=== PATIENT | female | born 1955 | race Caucasian/White ===

== ENCOUNTER → 2016-06-03 | Outpatient (CLI) | payer MEDICARE ==
[~2016-06-03] MED LIST: CITALOPRAM HBR10 MG PO; DITROPAN 5 MG TA5 MG PO; FLEXERIL 10 MG10 MG PO; HYDROCHLOROTHIA25 MG PO; HYDROXYZINE HCL25 MG PO; KLONOPIN TAB 00.5 MG PO; LEVAQUIN750 MG PO; LIPITOR TAB 1010 MG PO; LISINOPRIL40 MG PO; NEURONTIN 300300 MG PO; PROTONIX40 MG PO; ZANTAC150 MG PO
== END ==
LOC: CT 05-27 15:00
DX: F17.210 Nicotine dependence, cigarettes, uncomplicated (principal)
CPT/HCPCS: G0297

== ENCOUNTER 2016-06-10 11:19 | Inpatient (IN) | payer MEDICARE, OTHER ==
[~2016-06-10] VITALS: Ht 157.5 cm; Wt 68.9 kg
[2016-06-10 11:53] LABS: HEMOGLOBIN 12.6 gm/dl (12.3-15.3); RED BLOOD COUNT 4.02 M/UL (4.00-5.10); WHITE BLOOD COUNT 6.8 K/UL (4.5-11.0)
[2016-06-10] MEDS ORDERED: LISINOPRIL40 MG PO (17:51)
[2016-06-10] MEDS ORDERED: PROTONIX40 MG PO (17:51)
[2016-06-10] MEDS ORDERED: LIPITOR TAB 1010 MG PO (17:52)
[2016-06-10] MEDS ORDERED: KLONOPIN TAB 00.5 MG PO (17:52)
[2016-06-10] MEDS ORDERED: HYDROCHLOROTHIA25 MG PO (17:52)
[2016-06-10] MEDS ORDERED: FLEXERIL 10 MG10 MG PO (17:53)
[2016-06-10] MEDS ORDERED: NEURONTIN 300300 MG PO (17:53)
[2016-06-10] MEDS ORDERED: ZANTAC150 MG PO (17:54)
[2016-06-10] MEDS ORDERED: HYDROXYZINE HCL25 MG PO (17:54)
[2016-06-10] MEDS ORDERED: CITALOPRAM HBR10 MG PO (17:55)
[2016-06-10] MEDS ORDERED: DITROPAN 5 MG TA5 MG PO (17:55)
[2016-06-11 04:39] LABS: ACINETOBACTER BAUMANNII Not Detected (Negative); CANDIDA ALBICANS Not Detected (Negative); CANDIDA KRUSEI Not Detected (Negative); CANDIDA TROPICALIS Not Detected (Negative); ENTEROCOCCUS Not Detected (Negative); HAEMOPHILUS INFLUENZAE Not Detected (Negative); KLEBSIELLA OXYTOCA Not Detected (Negative); KLEBSIELLA PNEUMONIAE Not Detected (Negative); KPC-CARBAPENEM-RESISTANCE GENE Not Detected (Negative); PROTEUS Not Detected (Negative); PSEUDOMONAS AERUGINOSA Not Detected (Negative); SERRATIA MARCESANS Not Detected (Negative); STAPHYLOCOCCUS Not Detected (Negative); STAPHYLOCOCCUS AUREUS Not Detected (Negative); STREP AGALACTIAE (GROUP B) Not Detected (Negative); STREP PYOGENES (GROUP A) Not Detected (Negative); STREPTOCOCCUS Not Detected (Negative); mecA (METHICILLIN RESIST GENE Not Detected (Negative); vanA/B (VANCOMYCIN RESIST GENE Not Detected (Negative)
[2016-06-11 07:13] LABS: HEMOGLOBIN 10.8 gm/dl (12.3-15.3)
[2016-06-11 07:16] LABS: RED BLOOD COUNT 3.49 M/UL (4.00-5.10); WHITE BLOOD COUNT 4.2 K/UL (4.5-11.0)
[2016-06-11 07:22] LABS: BUN/CREATININE RATIO 20 (0-10)
[2016-06-11 08:24] LABS: ESCHERICHIA COLI DETECTED (Negative)
[2016-06-12 05:36] LABS: HEMOGLOBIN 10.4 gm/dl (12.3-15.3); RED BLOOD COUNT 3.3 M/UL (4.00-5.10); WHITE BLOOD COUNT 4.2 K/UL (4.5-11.0)
[2016-06-12 05:40] LABS: BUN/CREATININE RATIO 16 (0-10)
[2016-06-13 04:37] LABS: HEMOGLOBIN 10.4 gm/dl (12.3-15.3); RED BLOOD COUNT 3.34 M/UL (4.00-5.10); WHITE BLOOD COUNT 5.7 K/UL (4.5-11.0)
[2016-06-13 05:00] LABS: BUN/CREATININE RATIO 15 (0-10)
[2016-06-13] MEDS ORDERED: LEVAQUIN750 MG PO (15:43)
== END 2016-06-13 17:00 | disposition home or self-care (01) | DRG 871 ==
LOC: ER1 11:19 → MED SURG 4 14:17 → ZEROF 14:17 → MED SURG 4 17:20
PROVIDERS: Emergency Medicine; Physician Assistant; ADMIT Internal Medicine
DX: A41.51 Sepsis due to Escherichia coli [E. coli] (principal); J18.9 Pneumonia, unspecified organism; N30.00 Acute cystitis without hematuria; M62.82 Rhabdomyolysis; E87.2 Acidosis; D61.818 Other pancytopenia; D69.6 Thrombocytopenia, unspecified; I10 Essential (primary) hypertension; E78.5 Hyperlipidemia, unspecified; R01.1 Cardiac murmur, unspecified; K21.9 Gastro-esophageal reflux disease without esophagitis; F41.9 Anxiety disorder, unspecified; F17.210 Nicotine dependence, cigarettes, uncomplicated; I49.1 Atrial premature depolarization; E83.42 Hypomagnesemia; E87.6 Hypokalemia; Z88.6 Allergy status to analgesic agent; Z82.49 Family history of ischemic heart disease and other diseases of the circulatory system; Z83.3 Family history of diabetes mellitus; Z80.1 Family history of malignant neoplasm of trachea, bronchus and lung
CPT/HCPCS: ECHO; 36415; 51701; 70450; 71010; 71020; 80053; 81001; 82140; 82550; 82553; 83605; 83735; 83874; 84439; 84443; 84484; 85025; 87040; 87077; 87086; 87150; 87186; 93005; 93306; 96361; 96374; 97116; 97530; 99284; J1956; J2020; J7030

== ENCOUNTER → 2016-06-22 | Outpatient (CLI) | payer MEDICARE, OTHER | LOC: HEART 5 08:30 | DX: R01.1 Cardiac murmur, unspecified (principal); I35.0 Nonrheumatic aortic (valve) stenosis; I10 Essential (primary) hypertension; F17.200 Nicotine dependence, unspecified, uncomplicated | CPT/HCPCS: 93306 ==

== ENCOUNTER → 2016-06-25 | Outpatient (CLI) | payer MEDICARE, OTHER | LOC: US 10:51 | DX: R01.1 Cardiac murmur, unspecified (principal); I65.22 Occlusion and stenosis of left carotid artery | CPT/HCPCS: 93880 ==